=== PATIENT | female | born 1970 | race Caucasian/White ===

== ENCOUNTER → 2017-01-21 | Outpatient (REF) ==
[~2017-01-21] MED LIST: BETAPACE AF80 MG/TA1; K-DUR 2020 MEQ PO; LASIX 20MG TABL20 MG PO; LEXAPRO20 MG PO; LOPRESSOR100 MG PO; MULTAQ400 MG PO; PERCOCET 325 MG1 TA2 PO; PROTONIX 40MG T40 MG PO; ULTRAM 50MG TAB50 MG PO; VENTOLIN0.09 MG IH; XANAX 0.5MG0.5 MG PO
[2017-01-21 14:27] LABS: MEAN CELL VOLUME 70 fl (80.0-100.0); MEAN CORPUSCULAR HGB CONC 33 g/dl (33.0-37.0); PLATELET COUNT 264 K/mm3 (130-400); RED BLOOD COUNT 5.12 M/mm3 (4.10-5.30); REDCELL DISTRIBUTION WIDTH-CV 21.4 % (11.5-14.5); WHITE BLOOD COUNT 9.5 K/mm3 (4.8-10.8)
[2017-01-21 14:33] LABS: CALCIUM 8.7 mg/dL (8.4-10.2); CREATININE, serum 0.59 mg/dL (0.52-1.25); POTASSIUM 3.6 mmol/L (3.4-5.0)
[2017-01-21 14:36] LABS: HEMATOCRIT 35.6 % (37.0-47.0); HEMOGLOBIN 11.6 g/dl (12.5-16.0); MEAN CORPUSCULAR HEMOGLOBIN 23 pg (27.0-31.0)
== END ==
LOC: ZMSC 13:55
PROVIDERS: Orthopaedic Surgery
DX: Z01.89 Encounter for other specified special examinations (principal)

== ENCOUNTER 2017-11-04 12:21 | Outpatient (CLI) | payer BC, MEDICARE ==
[~2017-11-04] VITALS: Ht 172.7 cm; Wt 138.6 kg
[2017-11-04] VITALS (8 sets, daily range): BP systolic 122–149; BP diastolic 64–96; PULSE 61–81
[~2017-11-04 12:21] MED LIST changes: +CYMBALTA 60MG60 MG PO; +RELAFEN 50500 MG/TAB PO
== END 2017-11-04 16:59 | disposition home or self-care (01) ==
LOC: COL.RAD 12:21
DX: M51.35 Other intervertebral disc degeneration, thoracolumbar region (principal); M48.05 Spinal stenosis, thoracolumbar region; M48.07 Spinal stenosis, lumbosacral region; N31.9 Neuromuscular dysfunction of bladder, unspecified
CPT/HCPCS: Q9965

== ENCOUNTER → 2020-08-29 | Outpatient (CLI) | payer BC, MEDICARE ==
[~2020-08-29] MED LIST changes: +DULOXETINE HCL40 MG PO
== END ==
LOC: COL.RAD 09:04
DX: M25.551 Pain in right hip (principal)
CPT/HCPCS: J3301; Q9967

== ENCOUNTER 2020-09-12 08:03 | Day surgery (SDC) | payer BC, MEDICARE ==
[~2020-09-12] VITALS: Ht 172.7 cm; Wt 133.3 kg
[2020-09-12 08:48] VITALS: BP 150/100; PULSE 91; TEMP 98.5
[2020-09-12] MEDS ORDERED: GLUCOPHAGE500 MG/TAB PO (08:54)
[2020-09-12] MEDS ORDERED: [UNRECOGNIZED DRUG - OTHER] PO (08:55)
[2020-09-12] MEDS ORDERED: XANAX 0.5MG0.5 MG PO (08:56)
[2020-09-12 10:55] VITALS: BP 135/72; PULSE 76; TEMP 97.8
--- NOTE | 2020-09-12 10:55 | NUR ---
Pt to GI bay 6 via cart from ENDO. Pt awake and alert. Pt ambulates to recliner with stand by assistance. Muffin and water given per pt request. Will continue to [facility].
[2020-09-12 11:10] VITALS: BP 132/74; PULSE 70
--- NOTE | 2020-09-12 11:10 | NUR ---
Pt continues to rest. Denies needs. Call light within reach.
[2020-09-12 11:25] VITALS: BP 133/73; PULSE 69
--- NOTE | 2020-09-12 11:25 | NUR ---
Pt continues to rest. Denies needs. Call light within reach.
[2020-09-12 11:40] VITALS: BP 134/86; PULSE 66
--- NOTE | 2020-09-12 11:40 | NUR ---
Discharge instructions reviewed. Pt voices understanding. IV site discontinued with all parts intact. Pt up to dress. Call light within reach.
--- NOTE | 2020-09-12 12:00 | NUR ---
Pt escorted to private car via wheel chair. Pt accompanied home by her .
== END 2020-09-12 12:00 | disposition home or self-care (01) ==
LOC: SDCO 08:03
DX: K62.1 Rectal polyp (principal); K31.7 Polyp of stomach and duodenum; K21.9 Gastro-esophageal reflux disease without esophagitis; K58.0 Irritable bowel syndrome with diarrhea; Z79.82 Long term (current) use of aspirin; E66.01 Morbid (severe) obesity due to excess calories; M19.90 Unspecified osteoarthritis, unspecified site; F32.9 Major depressive disorder, single episode, unspecified; Z90.49 Acquired absence of other specified parts of digestive tract; E11.9 Type 2 diabetes mellitus without complications; Z79.84 Long term (current) use of oral hypoglycemic drugs; I10 Essential (primary) hypertension; I48.91 Unspecified atrial fibrillation; G47.33 Obstructive sleep apnea (adult) (pediatric); G89.29 Other chronic pain; F41.9 Anxiety disorder, unspecified
CPT/HCPCS: J2704; J3010; J7030

== ENCOUNTER 2020-11-27 17:10 | Emergency (ER) | payer BC, MEDICARE ==
[~2020-11-27] VITALS: Ht 172.7 cm; Wt 132.3 kg
[~2020-11-27 17:10] MED LIST changes: +GLUCOPHAGE500 MG/TAB PO; +[UNRECOGNIZED DRUG - OTHER] PO
[2020-11-27 17:40] VITALS: TEMP 97.8
[2020-11-27 18:20] LABS: BASO % 0.3 % (0.0-2.0); EOS # 0.1 (0.0-0.7); EOS % 1.4 % (0-4.0); GRAN # 5.1 (1.4-6.5); GRAN % 58.5 % (42.2-75.2); HEMATOCRIT 41.3 % (37.0-47.0); HEMOGLOBIN 13.6 g/dl (12.5-16.0); LYMPH # 2.9 (1.2-3.4); LYMPH % 33.2 % (20.0-51.0); MEAN CELL VOLUME 70 fl (80.0-100.0); MEAN CORPUSCULAR HEMOGLOBIN 23 pg (27.0-31.0); MEAN CORPUSCULAR HGB CONC 33 g/dl (33.0-37.0); MEAN PLATELET VOLUME 8.9 fl (7.4-10.4); MONO # 0.6 (0.1-0.6); MONO % 6.4 % (1.7-9.3); PLATELET COUNT 312 K/mm3 (130-400); RED BLOOD COUNT 5.88 M/mm3 (4.10-5.30)
[2020-11-27 18:30] LABS: ALANINE AMINOTRANSFERASE 24 U/L (4-34); ALBUMIN 4.1 gm/dL (3.5-5.0); ALKALINE PHOSPHATASE 67 U/L (50-136); ANION GAP 8 mmol/L (7-16); AST,SGOT 27 U/L (15-37); BILIRUBIN,TOTAL 0.7 mg/dL (0.0-1.0); BLOOD UREA NITROGEN 17 mg/dL (7-17); CALCIUM 9.3 mg/dL (8.4-10.2); CARBON DIOXIDE 27 mmol/L (22-30); CHLORIDE 103 mmol/L (98-107); CREATININE, serum 0.58 (0.52-1.25); GLUCOSE 156 mg/dL (74-106); POTASSIUM 3.9 mmol/L (3.4-5.0); SODIUM 138 mmol/L (137-145); TOTAL PROTEIN 7.2 gm/dL (6.4-8.2)
[2020-11-27 18:42] LABS: TROPONIN-I < 0.012 ng/mL (0.000-0.035)
[2020-11-27 19:30] VITALS: BP 139/84; PULSE 62
== END 2020-11-27 19:30 | disposition home or self-care (01) ==
LOC: COL.ER 17:10
PROVIDERS: Emergency Medicine
DX: U07.1 COVID-19 (principal); I48.91 Unspecified atrial fibrillation; E11.9 Type 2 diabetes mellitus without complications; E66.9 Obesity, unspecified; Z79.82 Long term (current) use of aspirin; Z95.0 Presence of cardiac pacemaker; Z88.8 Allergy status to other drugs, medicaments and biological substances; Z79.84 Long term (current) use of oral hypoglycemic drugs; Z68.41 Body mass index [BMI] 40.0-44.9, adult
CPT/HCPCS: J1885

== ENCOUNTER 2021-04-15 17:14 | Emergency (ER) | payer BC, MEDICARE ==
[~2021-04-15] VITALS: Ht 172.7 cm; Wt 132.7 kg
[~2021-04-15 17:14] MED LIST changes: +QTERN 10 MG-51 EACH PO; -[UNRECOGNIZED DRUG - OTHER] PO
[2021-04-15 17:20] VITALS: TEMP 98.5
[2021-04-15 19:06] VITALS: BP 144/80; PULSE 87
== END 2021-04-15 19:06 | disposition home or self-care (01) ==
LOC: COL.ER 17:14
DX: S93.402A Sprain of unspecified ligament of left ankle, initial encounter (principal); M79.7 Fibromyalgia; I10 Essential (primary) hypertension; E11.9 Type 2 diabetes mellitus without complications; Z79.84 Long term (current) use of oral hypoglycemic drugs; Z88.8 Allergy status to other drugs, medicaments and biological substances; X58.XXXA Exposure to other specified factors, initial encounter

== ENCOUNTER 2021-08-25 06:30 | Emergency (ER) | payer BC, MEDICARE ==
[~2021-08-25] VITALS: Ht 172.7 cm; Wt 132.7 kg
[2021-08-25 06:44] VITALS: BP 170/84; TEMP 98.1
[2021-08-25] MEDS ORDERED: ASPIRIN 81M81 MG/TA2 PO (06:51)
[2021-08-25] MEDS ORDERED: GLUCOPHAGE XR500 M1 PO (06:52)
[2021-08-25] MEDS ORDERED: CLEOCIN HCL300 MG PO (07:48)
[2021-08-25] MEDS ORDERED: NORCO 325 MG-51 TAB PO (07:48)
[2021-08-25 08:01] VITALS: PULSE 99
== END 2021-08-25 08:01 | disposition home or self-care (01) ==
LOC: COL.ER 06:30
DX: L02.416 Cutaneous abscess of left lower limb (principal); I48.91 Unspecified atrial fibrillation; I10 Essential (primary) hypertension; E11.9 Type 2 diabetes mellitus without complications; Z79.82 Long term (current) use of aspirin; Z79.84 Long term (current) use of oral hypoglycemic drugs

== ENCOUNTER 2021-10-04 12:55 | Emergency (ER) | payer BC, MEDICARE ==
[~2021-10-04] VITALS: Ht 172.7 cm; Wt 131.8 kg
[~2021-10-04 12:55] MED LIST changes: +ASPIRIN 81M81 MG/TA2 PO; +CLEOCIN HCL300 MG PO; +GLUCOPHAGE XR500 M1 PO; +NORCO 325 MG-51 TAB PO
[2021-10-04 13:12] VITALS: TEMP 100
[2021-10-04] MEDS ORDERED: DOXYCYCLINE 10100 MG PO (16:23)
[2021-10-04 17:12] VITALS: BP 156/77; PULSE 85
== END 2021-10-04 17:12 | disposition home or self-care (01) ==
LOC: COL.ER 12:55
DX: J20.9 Acute bronchitis, unspecified (principal); E11.9 Type 2 diabetes mellitus without complications; I10 Essential (primary) hypertension; I48.91 Unspecified atrial fibrillation; I25.10 Atherosclerotic heart disease of native coronary artery without angina pectoris; Z95.0 Presence of cardiac pacemaker; Z79.84 Long term (current) use of oral hypoglycemic drugs; Z79.82 Long term (current) use of aspirin; Z79.899 Other long term (current) drug therapy

== ENCOUNTER 2021-10-26 16:43 | Emergency (ER) | payer BC, MEDICARE ==
[~2021-10-26] VITALS: Ht 172.7 cm; Wt 135.9 kg
[~2021-10-26 16:43] MED LIST changes: +DOXYCYCLINE 10100 MG PO
[2021-10-26 16:56] VITALS: TEMP 98.4
[2021-10-26 17:44] LABS: BASO % 0.2 % (0.0-2.0); EOS # 0.3 K/mm3 (0.0-0.7); EOS % 3.7 % (0.0-4.0); GRAN # 4.8 K/mm3 (1.4-6.5); GRAN % 58.9 % (42.2-75.2); HEMATOCRIT 36.8 % (37.0-47.0); HEMOGLOBIN 11.8 g/dl (12.5-16.0); LYMPH # 2.4 K/mm3 (1.2-3.4); LYMPH % 29.8 % (20.0-51.0); MEAN CELL VOLUME 72 fl (80.0-100.0); MEAN CORPUSCULAR HEMOGLOBIN 23 pg (27-31); MEAN CORPUSCULAR HGB CONC 32 g/dl (33.0-37.0); MEAN PLATELET VOLUME 9.1 fl (7.4-10.4); MONO # 0.6 K/mm3 (0.1-0.6); PLATELET COUNT 254 K/mm3 (130-400); RED BLOOD COUNT 5.15 M/mm3 (4.10-5.30); REDCELL DISTRIBUTION WIDTH-CV 21.2 % (11.5-14.5)
[2021-10-26 18:21] LABS: ALANINE AMINOTRANSFERASE 24 U/L (0-55); ALBUMIN 3.5 gm/dL (3.5-5.0); ALKALINE PHOSPHATASE 70 U/L (40-150); ANION GAP 9 mmol/L (7-16); AST,SGOT 13 U/L (5-34); BILIRUBIN,TOTAL 0.3 mg/dL (0.2-1.2); BLOOD UREA NITROGEN 18 mg/dL (10-20); C-REACTIVE PROTEIN 2.39 mg/dL (0.00-0.50); CALCIUM 9.3 mg/dL (8.4-10.2); CARBON DIOXIDE 25 mmol/L (22-29); CHLORIDE 110 mmol/L (98-107); CREATININE, serum 0.76 mg/dL (0.57-1.11); GLUCOSE 140 mg/dL (70-99); POTASSIUM 3.8 mmol/L (3.5-4.5); SODIUM 144 mmol/L (136-145); TOTAL PROTEIN 6.8 gm/dL (6.2-8.1)
[2021-10-26 18:31] LABS: TROPONIN-I < 0.010 ng/mL (0.00-0.033)
[2021-10-26] MEDS ORDERED: ZITHROMAX Z PA250 MG PO (20:30)
[2021-10-26] MEDS ORDERED: PROAIR HFA0.09 MG/AC IH (20:30)
[2021-10-26] MEDS ORDERED: PREDNISONE20 MG PO (20:30)
[2021-10-26 20:46] VITALS: BP 146/71; PULSE 88
== END 2021-10-26 20:45 | disposition home or self-care (01) ==
LOC: COL.ER 16:43
PROVIDERS: Nurse Practitioner
DX: J40 Bronchitis, not specified as acute or chronic (principal); I10 Essential (primary) hypertension; E11.9 Type 2 diabetes mellitus without complications; E66.01 Morbid (severe) obesity due to excess calories; Z95.0 Presence of cardiac pacemaker; Z88.1 Allergy status to other antibiotic agents; Z20.822 Contact with and (suspected) exposure to COVID-19; Z79.84 Long term (current) use of oral hypoglycemic drugs; Z68.42 Body mass index [BMI] 45.0-49.9, adult

== ENCOUNTER 2021-11-01 20:58 | Observation (INO) | payer BC, MEDICARE ==
[~2021-11-01] VITALS: Ht 172.7 cm; Wt 133.2 kg
[~2021-11-01 20:58] MED LIST changes: +PREDNISONE20 MG PO; +PROAIR HFA0.09 MG/AC IH; +ZITHROMAX Z PA250 MG PO
[2021-11-01 21:18] LABS: COLLECTION METHOD CLEAN CATCH
[2021-11-01 21:24] LABS: PH 6 (5-8); SQUAMOUS EPITHELIAL None Seen /hpf (0-10); URINE APPEARANCE Clear (CLEAR/HAZY); URINE BACTERIA None Seen /hpf (NONE SEEN); URINE BILIRUBIN Negative (NEGATIVE); URINE BLOOD Negative (NEGATIVE); URINE COLOR Colorless (YELLOW); URINE GLUCOSE 3+ (NEGATIVE); URINE KETONE Negative (NEGATIVE); URINE LEUKOCYTE ESTERASE Negative (NEGATIVE); URINE NITRATE Negative (NEGATIVE); URINE PROTEIN(semi-quant) Negative (NEGATIVE); URINE RBC 0-2 /hpf (0-2); URINE UROBILINOGEN Negative (NEGATIVE)
[2021-11-01 21:28] LABS: BASO % 0.1 % (0.0-2.0); GRAN # 8.1 K/mm3 (1.4-6.5); GRAN % 85.1 % (42.2-75.2); HEMATOCRIT 41.7 % (37.0-47.0); HEMOGLOBIN 13.5 g/dl (12.5-16.0); LYMPH # 1.1 K/mm3 (1.2-3.4); LYMPH % 11.9 % (20.0-51.0); MEAN CELL VOLUME 71 fl (80.0-100.0); MEAN CORPUSCULAR HEMOGLOBIN 23 pg (27-31); MEAN CORPUSCULAR HGB CONC 32 g/dl (33.0-37.0); MEAN PLATELET VOLUME 9.3 fl (7.4-10.4); MONO # 0.2 K/mm3 (0.1-0.6); PLATELET COUNT 323 K/mm3 (130-400); RED BLOOD COUNT 5.88 M/mm3 (4.10-5.30); REDCELL DISTRIBUTION WIDTH-CV 21.6 % (11.5-14.5)
[2021-11-01] MEDS ORDERED: TESSALON P100 MG/CAP PO (21:32)
[2021-11-01] MEDS ORDERED: OMNICEF 300MG300 MG PO (21:33)
[2021-11-01] MEDS ORDERED: LASIX 20MG TABL20 MG PO (21:34)
[2021-11-01] MEDS ORDERED: KLOR-CON SPRIN10 MEQ PO (21:35)
[2021-11-01] MEDS ORDERED: QTERN 10 MG-51 EACH PO (21:36)
[2021-11-01 21:47] LABS: ALANINE AMINOTRANSFERASE 22 U/L (0-55); ALBUMIN 4.1 gm/dL (3.5-5.0); ALKALINE PHOSPHATASE 102 U/L (40-150); ANION GAP 15 mmol/L (7-16); AST,SGOT 14 U/L (5-34); BILIRUBIN,TOTAL 0.5 mg/dL (0.2-1.2); BLOOD UREA NITROGEN 18 mg/dL (10-20); CALCIUM 8.7 mg/dL (8.4-10.2); CARBON DIOXIDE 21 mmol/L (22-29); CHLORIDE 98 mmol/L (98-107); CREATININE, serum 1.31 mg/dL (0.57-1.11); LIPASE 38 U/L (8-78); POTASSIUM 4.3 mmol/L (3.5-4.5); SODIUM 134 mmol/L (136-145); TOTAL PROTEIN 7.6 gm/dL (6.2-8.1)
[2021-11-01 21:48] LABS: GLUCOSE 717 mg/dL (70-99)
[2021-11-01 22:48] LABS: ACETONE,SERUM NEGATIVE
[2021-11-02] VITALS (7 sets, daily range): BP systolic 141–163; BP diastolic 62–71; PULSE 59–76; TEMP 97.6–98.1
--- NOTE | 2021-11-02 02:56 | NUR ---
PT TRANSFERRED TO ROOM 307 FROM ED BY ED STAFF AT 0140 VIA WHEELCHAIR, PERSONAL CANE AND BELONINGS WITH PATIENT.PT A/OX4, 02 ROOM AIR, DENIES PAIN, BS ACCUCHECK Q4, ASSESMENT COMPLETE, MED REC COMPLETE. PT CURRENTLY DENIES S/S OF HYPERGLYCEMIA. THIS NURSE INSTRUCTED PT ON S/S TO REPORT TO NURSE. PT VERBALIZES UNDERSTANDING. POC DISCUSSED WITH PT. ALL QUESTIONS/CONCERNS ANSWERED. PT EXPRESSES NO ADDITIONAL NEEDS AT THIS TIME. CALL LIGHT WTIHIN REACH.
--- NOTE | 2021-11-02 05:40 | NUR ---
ALL MEDICATIONS ADMINISTERED THIS SHIFT. INSULIN ADMINISTERED ORDERED. PT STATES SHE FEELS A LITTLE BETTER. PT DENIES S/S OF HYPERGLYCEMIA AT THIS TIME. CALL LIGHT WITHIN REACH.
[2021-11-02 07:14] LABS: BASO % 0.2 % (0.0-2.0); EOS # 0.1 K/mm3 (0.0-0.7); EOS % 0.4 % (0.0-4.0); GRAN # 8.6 K/mm3 (1.4-6.5); GRAN % 60.2 % (42.2-75.2); HEMATOCRIT 38.3 % (37.0-47.0); HEMOGLOBIN 12.5 g/dl (12.5-16.0); LYMPH # 4.5 K/mm3 (1.2-3.4); LYMPH % 31.7 % (20.0-51.0); MEAN CELL VOLUME 70 fl (80.0-100.0); MEAN CORPUSCULAR HEMOGLOBIN 23 pg (27-31); MEAN CORPUSCULAR HGB CONC 33 g/dl (33.0-37.0); MEAN PLATELET VOLUME 9.1 fl (7.4-10.4); MONO % 6.7 % (1.7-9.3); PLATELET COUNT 301 K/mm3 (130-400); RED BLOOD COUNT 5.46 M/mm3 (4.10-5.30); REDCELL DISTRIBUTION WIDTH-CV 21.3 % (11.5-14.5)
[2021-11-02 07:30] LABS: CALCIUM 8.8 mg/dL (8.4-10.2); CREATININE, serum 0.74 mg/dL (0.57-1.11); POTASSIUM 3.2 mmol/L (3.5-4.5)
--- NOTE | 2021-11-02 07:55 | NUR ---
THE PATIENT IS SITTING IN BED AFTER RETURNING FROM THE BATHROOM. BLOOD SUGAR IS CURRENTLY 204. NO CURRENT ISSUES.
--- NOTE | 2021-11-02 10:18 | NUR ---
CRISIT met with the patient and her , Eron (ph#[phone]), to discuss discharge plan. The patient lives in [place] with her . She reports independence with ADLs and has a cane and walker. She states that she will have her stand by her when she gets in and out of the shower. The patient's PCP is Dr. Stephania Reece and she receives her medications from [facility]. She reports no difficulties obtaining her meds. The patient does not have a DPOA-HC in EMR, but she states that she does have one completed and the document is at home. She reports that she designated her and then son, Ishan (ph#[phone]). The patient plans on returnining home with her upon discharge. No additional needs at this time. *Discharge plan: home with *
--- NOTE | 2021-11-02 19:48 | NUR ---
PT HAD UNEVENTFUL DAY. DENIES ANY PAIN. BLOOD SUGARS HAVE BEEN STABLE IN THE 200'S.
[2021-11-03 04:11] VITALS: BP 144/64; PULSE 72; TEMP 98.4
[2021-11-03 08:02] LABS: HEMOGLOBIN 12.4 g/dl (12.5-16.0); MEAN CELL VOLUME 73 fl (80.0-100.0); MEAN CORPUSCULAR HEMOGLOBIN 23 pg (27-31); MEAN CORPUSCULAR HGB CONC 32 g/dl (33.0-37.0); MEAN PLATELET VOLUME 9.1 fl (7.4-10.4); PLATELET COUNT 272 K/mm3 (130-400); RED BLOOD COUNT 5.38 M/mm3 (4.10-5.30); REDCELL DISTRIBUTION WIDTH-CV 21.7 % (11.5-14.5)
--- NOTE | 2021-11-03 08:14 | NUR ---
Assessment completed, alert/oriented, vital signs stable, blood sugar control improved, she denies pain or discomfort, heart RRR/distal pulses are palpable, lungs CTA/ no resp.difficulty noted, she is independent in her room and denies other needs this morning
[2021-11-03 08:18] LABS: CALCIUM 8.6 mg/dL (8.4-10.2); CREATININE, serum 0.69 mg/dL (0.57-1.11); MAGNESIUM 2.2 mg/dL (1.6-2.6); POTASSIUM 3.3 mmol/L (3.5-4.5)
[2021-11-03 08:30] VITALS: BP 145/72; PULSE 70; TEMP 97.4
[2021-11-03 09:13] LABS: EOSINOPHIL 1 % (0-4); LYMPHOCYTE 42 % (20.0-51.0); NEUTROPHILS 50 % (42.0-75.2); NUCLEATED RED BLOOD CELL 1 (0-6)
[2021-11-03 09:14] LABS: PLATELET ESTIMATE NORMAL (NORMAL); TARGET CELLS 1+
[2021-11-03 09:15] LABS: ANISOCYTOSIS 2+; MICROCYTOSIS 2+; POLYCHROMASIA 1+
--- NOTE | 2021-11-03 09:37 | NUR ---
Initial visit; Patient thanked [employer] for looking in on her and keeping her in [employer]'s prayers.
--- NOTE | 2021-11-03 11:20 | NUR ---
Discharge orders discussed with patient , instructed to stop prednisone finish Omniceff through 11/07/21, instructed to follow up with on 11/05 as previously scheduled, monitor blood glucose leveles at least 3x day for now, IV removed, leaving with her , I will walk her out the door
== END 2021-11-03 12:50 | disposition home or self-care (01) ==
LOC: COL.ER 20:58 → MEDICAL 22:34
PROVIDERS: Emergency Medicine; Physician Assistant; Student in an Organized Health Care Education/Training Program; ADMIT Internal Medicine
DX: E11.65 Type 2 diabetes mellitus with hyperglycemia (principal); I48.91 Unspecified atrial fibrillation; I10 Essential (primary) hypertension; J40 Bronchitis, not specified as acute or chronic; E66.01 Morbid (severe) obesity due to excess calories; I49.5 Sick sinus syndrome; N17.9 Acute kidney failure, unspecified; K58.9 Irritable bowel syndrome, unspecified; Z79.82 Long term (current) use of aspirin; Z95.0 Presence of cardiac pacemaker; Z79.84 Long term (current) use of oral hypoglycemic drugs; Z79.899 Other long term (current) drug therapy
CPT/HCPCS: G0378; J1644; J1815; J7030; J7512

== ENCOUNTER → 2021-12-28 | Outpatient (CLI) | payer BC, MEDICARE ==
[~2021-12-28] MED LIST changes: +FLOMAX 0.40.4 MG/CAP PO; +KLOR-CON SPRIN10 MEQ PO; +LIPITOR 40MG TA40 MG PO; +OMNICEF 300MG300 MG PO; +TESSALON P100 MG/CAP PO; +ZOFRAN ODT4 MG PO
== END ==
LOC: COL.RAD 07:43
DX: R19.7 Diarrhea, unspecified (principal); R10.13 Epigastric pain
CPT/HCPCS: A9541

== ENCOUNTER 2023-07-09 18:40 | Emergency (ER) | payer BC, MEDICARE ==
[~2023-07-09] VITALS: Ht 172.7 cm; Wt 119.5 kg
[~2023-07-09 18:40] MED LIST changes: +CARAFATE 1GM1 G PO; +INDERAL40 MG PO; +K-DUR 10 MEQ T10 MEQ PO; +K-DUR20 MEQ PO; +LEXAPRO 5MG5 MG PO; +NITROSTAT0.4 MG/TAB SL; +NORVASC 5MG5 MG/TAB PO; +XANAX .25M0.25 MG/TA PO
[2023-07-09 20:15] VITALS: BP 132/55; PULSE 73
== END 2023-07-09 20:15 | disposition home or self-care (01) ==
LOC: COL.ER 18:40
DX: S80.211A Abrasion, right knee, initial encounter (principal); S80.212A Abrasion, left knee, initial encounter; S90.512A Abrasion, left ankle, initial encounter; M79.642 Pain in left hand; Z28.310 Unvaccinated for COVID-19; X50.1XXA Overexertion from prolonged static or awkward postures, initial encounter; W01.0XXA Fall on same level from slipping, tripping and stumbling without subsequent striking against object, initial encounter